=== PATIENT | female | born 1985 | race Caucasian/White ===

== ENCOUNTER 2016-11-19 13:03 | Emergency (ER) | payer MEDICARE, MEDICAID ==
[~2016-11-19] VITALS: Ht 165.1 cm; Wt 75.6 kg
[~2016-11-19 13:03] MED LIST: ALBU90AE INH; AZIT500T77 PO; CEFD300C37 PO; CLOZ25TA PO; ESCI10TA10 PO; LAMO200T3 PO; LORA-445 PO; METH4TAB2 PO; SERT100T PO
[2016-11-19] MEDS ORDERED: ONDANSETRON ODT 4 MG PO ONE (14:00)
[2016-11-19] MEDS ORDERED: LORazepam 1MG TABLET PO ONE (14:00)
[2016-11-19] MEDS ORDERED: PRAZ2CAP2 PO (14:03)
[2016-11-19] MEDS ORDERED: GABA100C PO ×3 (14:03)
[2016-11-19] MEDS ORDERED: VENL75CA PO (14:03)
[2016-11-19] MEDS ORDERED: MIRT15TA PO (14:03)
[2016-11-19] MEDS ORDERED: BUSP10TA PO (14:03)
[2016-11-19] MEDS ORDERED: LORazepam 1MG TABLET ONE (14:18)
[2016-11-19] MEDS ORDERED: ONDANSETRON ODT 4 MG ONE (14:19)
[2016-11-19 14:34] LABS: BLOOD UREA NITROGEN 17 mg/dL (7-18)
[2016-11-19 14:40] LABS: ASPARTATE AMINO TRANSFERASE 14 U/L (15-37)
[2016-11-19 14:52] LABS: IS PT STATUS REG ER OR PRE ER? YES
[2016-11-19 15:23] VITALS: BP 123/75
== END 2016-11-19 15:27 | disposition home or self-care (01) ==
LOC: ED 14:41
DX: J45.31 Mild persistent asthma with (acute) exacerbation (principal); F17.200 Nicotine dependence, unspecified, uncomplicated; J45.909 Unspecified asthma, uncomplicated; Z87.01 Personal history of pneumonia (recurrent); Z88.8 Allergy status to other drugs, medicaments and biological substances
CPT/HCPCS: 36415; 71010; 80053; 84484; 84703; 85025; 93005; 99285; Q0162

== ENCOUNTER 2020-10-07 20:06 | Emergency (ER) | payer MEDICARE, MEDICAID ==
[~2020-10-07] VITALS: Ht 165.1 cm; Wt 93.7 kg
[~2020-10-07 20:06] MED LIST changes: +AZIT500T10 PO; -AZIT500T77 PO; +BUSP10TA PO; +GABA100C PO; +MIRT-37 PO; +PRAZ2CAP2 PO; +VENL75CA PO
[2020-10-07] MEDS ORDERED: ACETAMINOPHEN 500 MG TABLET ONE (21:46)
[2020-10-07] MEDS ORDERED: ONDANSETRON 2MG/ML, 2ML ONE (21:46)
[2020-10-07] MEDS ORDERED: FAMOTIDINE 20 MG/2 ML ONE (21:46)
[2020-10-07] MEDS ORDERED: FAMOTIDINE 20 MG/2 ML IVPush ONE (22:00)
[2020-10-07] MEDS ORDERED: SODIUM CHLORIDE 0.9% 1,000ML IVBOLUS ONE (22:00)
[2020-10-07] MEDS ORDERED: ACETAMINOPHEN 500 MG TABLET PO ONE (22:00)
[2020-10-07] MEDS ORDERED: ONDANSETRON 2MG/ML, 2ML IVPush ONE (22:00)
[2020-10-07] MEDS ORDERED: PANTOPRAZOLE 80 MG in SODIUM CHLORIDE 0.9% 50 ML IV ONE (22:00)
[2020-10-07 22:06] LABS: BASOPHILS % (AUTO) 1 % (0-1); EOSINOPHILS % (AUTO) 3 % (1-7); LYMPHOCYTES % (AUTO) 21 % (22-44); MEAN CORPUSCULAR HEMOGLOBIN 32.4 pg (27.0-34.8); MEAN CORPUSCULAR HGB CONC 34.1 g/dL (32.4-35.8); MEAN PLATELET VOLUME 8.1 fL (7.4-10.4); MONOCYTES % (AUTO) 5 % (2-9); NEUTROPHILS % (AUTO) 70 % (42-75); PLATELET COUNT 286 x10^3/uL (130-400); RED BLOOD COUNT 4.81 x10^6/uL (3.82-5.3); RED CELL DISTRIBUTION WIDTH 13.1 % (9.6-15.2)
[2020-10-07 22:07] LABS: MD NO
[2020-10-07 22:16] LABS: ANION GAP 7 mmol/L (5-15); CALCIUM 9.3 mg/dL (8.5-10.1); CHLORIDE 105 mmol/L (98-107); CREATININE 0.75 mg/dL (0.55-1.02)
[2020-10-07 22:17] LABS: ALANINE AMINOTRANSFERASE 26 U/L (12-78)
[2020-10-07 22:21] LABS: ALKALINE PHOSPHATASE 48 U/L (45-117); BILIRUBIN,TOTAL 0.2 mg/dL (0.2-1.0); TOTAL PROTEIN 7.3 g/dL (6.4-8.2)
[2020-10-07 23:17] VITALS: BP 127/82
--- NOTE | 2020-10-07 23:19 | NUR ---
pt in bed with no signs or symptoms of acute distress noted respirations even and unlabored states pain is down to a 2/10. pt provided a small pack of crackers and a cup of water for po challenge. pt denies need at this time. pt with call light within reach, bed rails up bilaterally, and family member at bedside.
--- NOTE | 2020-10-07 23:39 | NUR ---
pt passed po challenge verbalizes readiness to dc
== END 2020-10-07 23:50 | disposition home or self-care (01) ==
LOC: ED 20:30
DX: K29.01 Acute gastritis with bleeding (principal); R11.2 Nausea with vomiting, unspecified; F17.210 Nicotine dependence, cigarettes, uncomplicated
CPT/HCPCS: 36415; 80053; 83690; 84703; 85025; 96365; 96375; 99284; 99406; C9113; J2405; J7030